=== PATIENT | female | born 1960 | race Caucasian/White ===

== ENCOUNTER 2022-08-11 06:56 | Day surgery (SDC) | payer BC, OTHER ==
[2022-08-11] MEDS ORDERED: Lactated Ringers 1,000 ML IV SCH (07:30)
[2022-08-11] MEDS ORDERED: Midazolam 1 MG/ML 2 ML SDV ONE (07:48)
[2022-08-11] MEDS ORDERED: Propofol 200 MG/20 ML SDV ONE ×2 (07:48→08:38)
[2022-08-11] MEDS ORDERED: fentaNYL 50 MCG/ML SDV ONE (07:48)
== END 2022-08-11 09:55 | disposition home or self-care (01) ==
LOC: JP.SDS 06:56
PROVIDERS: ATTEND Student in an Organized Health Care Education/Training Program
DX: Z12.11 Encounter for screening for malignant neoplasm of colon (principal); E78.00 Pure hypercholesterolemia, unspecified; Z79.899 Other long term (current) drug therapy
CPT/HCPCS: 45378; J2250; J2704; J3010; J7120